=== PATIENT | female | born 1990 | race Caucasian/White ===

== ENCOUNTER → 2019-05-29 09:18 | Outpatient (CLI) | payer OTHER, SELFPAY ==
[2019-05-29 09:57] LABS: Influenza A - CEPHEID Flu A NEGATIVE (NEGATIVE); Influenza B - CEPHEID Flu B POSITIVE (NEGATIVE)
== END ==
PROVIDERS: Visit Provider Physician Assistant
DX: R68.89 Other general symptoms and signs (principal); J02.9 Acute pharyngitis, unspecified
CPT/HCPCS: 87070; 87147; 87502